=== PATIENT | male | born 1995 | race Caucasian/White ===

== ENCOUNTER 2019-06-11 10:27 | Emergency (ER) | payer BC, SELFPAY ==
[2019-06-11 10:29] VITALS: BP 142/75; PULSE 80; RESP 17; TEMP 36.5; O2SAT 96; BMI 38.8
--- NOTE | 2019-06-11 11:04 | CT_ITS ---
STUDY: CT ABDOMEN AND PELVIS WITHOUT CONTRAST REASON FOR EXAM: Male, 23 years old. Left-sided pain RADIATION DOSAGE (If Supplied By Facility): CTDIvol = ( 19.52 ) mGy, DLP = ( 1092.21 ) mGycm TECHNIQUE: Transaxial images were obtained from the dome of the diaphragm to the symphysis pubis without oral contrast, and without intravenous contrast. Sagittal and coronal images were reconstructed. Individualized dose optimization techniques were used for this CT. COMPARISON: None. FINDINGS: Evaluation of the abdominal viscera is limited in the absence of intravenous contrast. The visualized lung bases are clear. The visualized portions of the heart and pericardium are within normal limits. There are no calcified gallstones present. The liver demonstrates an unremarkable unenhanced appearance. The spleen is normal in size. The pancreas demonstrates an unremarkable unenhanced appearance. The adrenal glands are within normal limits. There is a 3 mm stone in the left distal ureter with mild left hydroureteronephrosis. There are no right-sided stones. There is right-sided hydronephrosis. Normal visualized stomach. There is no bowel obstruction or inflammation. The appendix is not visualized, but there are no findings to suggest acute appendicitis. There stranding of the mesentery in the right upper quadrant with multiple mildly enlarged mesenteric lymph nodes, measuring up to 2.0 cm. The aorta is normal in caliber. There is no abdominal or pelvic free air, free fluid or fluid collection. There are no destructive osseous lesions. CT/Abdomen/Pelvis without Cont IMPRESSION: 3 mm stone in the left distal ureter with mild left hydroureteronephrosis. No right-sided stones. No right-sided hydronephrosis. Stranding of the mesentery in the right upper quadrant with multiple mildly enlarged mesenteric lymph nodes, measuring up to 2 cm. This is nonspecific, but may represent mesenteric panniculitis. Clinical correlation is recommended. Electronically Signed: Blu Esquivel, at 11:57 EST Tel , Service support ,
[2019-06-11 11:11] LABS: Bacteria 0 SEEN /hpf (None Seen); Mucous, Urine 0 SEEN /hpf (<or=2+); Squamous Epithelial Cells - UA 0 SEEN /hpf (0-5); White Blood Cells 0 SEEN /hpf (0-5)
[2019-06-11 11:13] LABS: Absolute Neutrophil Count 7.7 X10^3/uL (2.0-7.7); Basophil# 0.05 X10^3/uL; Basophil% 0.5 % (0-1); Eosinophil# 0.14 X10^3/uL; Eosinophils% 1.3 % (0-5); Hematocrit 46.2 % (40-54); Hemoglobin 15.8 g/dL (13.0-16.5); Lymphocyte % 15.9 % (19-41); Mean Corp Hgb Conc 34.2 g/dL (32-36); Mean Corpuscular Hgb 29.7 pg (27.0-32.0); Mean Corpuscular Volume 86.8 fL (80-94); Mean Platelet Vol. 11.6 fl (6.2-12.0); Monocyte# 1.07 X10^3/uL; NRBC Flagged by Analyzer 0 % (0-5); Neutrophil # 7.68 X10^3/uL (2.7-7.7); Platelet Count 202 K/mm3 (150-450); RBC Distribution Width CV 12.7 % (11.6-14.6); RBC Distribution Width SD 39.8 fl (35.1-43.9); Red Blood Count 5.32 M/mm3 (4.6-6.2); White Blood Count 10.7 K/mm3 (4.4-11.0)
[2019-06-11 11:18] LABS: Color, Urine Yellow (Yellow); Glucose, Dipstick Normal (Normal); Ketone-Dipstick 15 mg/dl (Negative); Leukocyte Esterase-Dipstick Negative /ul (Negative); Nitrite-Dipstick Negative (Negative); Occult Blood-Urine 150 /ul (Negative); Protein-Dipstick Negative (Negative); Urine Bilirubin Dipstick Negative (Negative); Urine Clarity Clear (Clear); Urine Urobilinogen Normal (Normal)
[2019-06-11 11:22] LABS: Anion Gap 6 (5-15); BUN 13 mg/dL (7-18); BUN/Creat Ratio 9.2 RATIO (10-20); Calcium,Total 9.4 mg/dL (8.5-10.1); Chloride 102 mmol/L (98-107); Creatinine, Serum 1.42 mg/dL (0.70-1.30); EST Glomerular Filtration Rate 64 mL/min (>60); Est Glom Filt Rate - Afr Amer 78 mL/min (>60); Estimated Creatinine Clearance 66.59 ml/min; Glucose 87 mg/dL (74-106); Potassium 4.5 mmol/L (3.5-5.1); Sodium Level 137 mmol/L (136-145)
[2019-06-11 11:26] LABS: Red Blood Cells-Urine 0-5 SEEN /hpf (0-5)
[2019-06-11] MEDS: 0.9% Normal Saline 1,000 ML 125 ML IV (12:14)
--- NOTE | 2019-06-11 12:58 | ED.VISSUMM ---
- ER Visit Summary Date of Service: 06/11/19 Chief Complaint: [Left flank pain] History of Present Illness: The patient is a 23 M [presents to the emergency department with complaint of left-sided flank pain that he is had for about 3 days. Patient states that he had nausea with it and the pain tends to be in his left lower quadrant radiating to his left testicle at times. Patient states it feels very similar to the last time he passed a kidney stone a couple years ago. Patient states that he was seen in urgent care couple days ago and given a pain shot and sent home with Flomax and Vicodin which he ran out of. Patient did take some ibuprofen today which did seem to help. He does not have a urologist. He has no other medical history. Patient has had prior appendectomy.] Physical Examination: [HEBETITO-PERRLA, EOMI. Cranial nerves II through XII grossly intact. TMs clear. Mucous membranes moist. No adenopathy. Cardiovascular-regular rate and rhythm without murmur or ectopy Lungs-clear to auscultation, chest wall stable without crepitus or subcu emphysema Abdomen-normoactive bowel sounds, soft. Patient has tenderness palpation over left lower quadrant with some guarding. There is no rebound, rigidity, or peritoneal signs. Extremities-intact ?4, normal range of motion, normal pulses, atraumatic] Test Results: [CBC with differential obtained was normal. Chemistries unremarkable. BUN was 13 and creatinine 1.42. Urinalysis showed 0-[address] flank showed a 3 mm stone at the left distal ureter with mild hydroureter and hydronephrosis.] Emergency Department Course and Treatment: [Patient refused any pain medication while in the department. Initially had an IV line established with normal saline.] Treatment Plan: [Patient will be given urine strainers and a prescription for [place] for severe pain. Patient to follow-up with urology within next 3 to 5 days. Patient advised to return if worsening pain, fever, vomiting, or conditions worsen anyway.] Disposition: [Discharged home in stable condition] Impression: [Left kidney stone with colic] This note was generated with [employer] dictation software. It may contain incorrect words, spelling, and punctuation that were not noted in review of the chart prior to signing ED Disposition - Plan for ED Patient: Referrals: JOSE M LOCKWOOD [Other]
--- NOTE | 2019-06-11 13:00 | ED.DEP ---
ED Disposition - Plan for ED Patient: Instructions: KIDNEY STONE w/ Colic Prescriptions: Hydrocodone Bitart/Apap 5-325 [[place] 5MG-325MG] 1 tab PO Q4H PRN PRN 2 Days #15 tab PRN Reason: Pain Prescription Printed Ondansetron [Zofran Odt] 4 mg PO Q8H PRN PRN #10 tab PRN Reason: Nausea Prescription Printed Referrals: JOSE M LOCKWOOD [Other] Gregory Ta MD [STAFF PHYSICIAN] - 3-5 Days
[2019-06-11 13:13] VITALS: BP 137/90; PULSE 56; RESP 16; O2SAT 96
== END 2019-06-11 13:14 | disposition home or self-care (01) ==
PROVIDERS: Emergency Provider Emergency Medicine
DX: N13.2 Hydronephrosis with renal and ureteral calculous obstruction (principal); Z87.442 Personal history of urinary calculi; Z72.0 Tobacco use
CPT/HCPCS: 74176; 80048; 81001; 85025; 96360; 96361; 99283; J7030; A4216